=== PATIENT | female | born 1990 | race Caucasian/White ===

== ENCOUNTER 2017-03-28 09:01 | Day surgery (SDC) | payer OTHER ==
[~2017-03-28 09:01] MED LIST: Buffered Lidocaine 0.9% SYRIN* 5 ML/SYR SYRINGE INTRADERM ONE; DOXYcycline IV* 100 MG in NS 0.9% 250 ML* 250 ML IVPB ONE
[2017-03-28] MEDS ORDERED: Buffered Lidocaine 0.9% SYRIN* 5 ML/SYR SYRINGE ONE (09:07)
[2017-03-28 09:54] LABS: Hematocrit 36 % (35-47); Hemoglobin 12.2 g/dl (12.0-16.0); Mean Corpuscular HGB Conc 34 g/dl (31-36); Mean Corpuscular Hemoglobin 29 pg (27-31); Mean Corpuscular Volume 87 fL (80-97); Mean Platelet Volume 8 um3 (7.4-10.4); Red Blood Count 4.15 10^6/ul (4.0-5.4); Red Cell Distribution Width 14 % (10.5-15); White Blood Count 8.7 10^3/ul (3.5-10.8)
[2017-03-28] MEDS ORDERED: fentaNYL* 50 MCG/ML 2 ML VIAL (100 MCG VIAL) ONE (10:10)
[2017-03-28] MEDS ORDERED: Midazolam* 1 MG/ML 5 ML VIAL (5 MG) ONE (10:10)
[2017-03-28] MEDS ORDERED: Chloroprocaine 2%* 20 ML VIAL ONE (11:18)
[2017-03-28] MEDS ORDERED: Ketorolac INJ* 30 MG/ML 1 ML VIAL ONE (11:32)
[2017-03-28] MEDS ORDERED: Metoclopramide IV* 5 MG/ML 2 ML VIAL ONE (11:32)
[2017-03-28] MEDS ORDERED: Acetaminophen TAB* 325 MG PO PRN (11:57)
[2017-03-28] MEDS ORDERED: Ondansetron INJ* 2 MG/ML VIAL IV PRN (11:57)
[2017-03-28 13:47] VITALS: BP 123/73
--- NOTE | 2017-03-29 01:52 | OP ---
OPERATIVE REPORT: DATE OF OPERATION: 03/28/17 - [facility] DATE OF : 88 SURGEON: Devendra Steen MD ANESTHESIOLOGIST: Sharlene Herrera MD ANESTHESIA: Spinal. PRE-OP DIAGNOSIS: Elective termination of and desires IUD. POST-OP DIAGNOSIS: Elective termination of and desires IUD. OPERATIVE PROCEDURE: D and C and IUD insertion. ESTIMATED BLOOD LOSS: 100 cc. SPECIMENS: Include products of conception. The patient is O positive. FINDINGS: On exam under anesthesia, the uterus was 12-week size and sounded to 9 cm. DESCRIPTION OF PROCEDURE: Patient identified and procedure identified as a D and C. The patient was taken to the operating room and prepped and draped in the usual fashion in dorsal lithotomy position under spinal anesthesia. Two single-tooth tenaculums were placed on the anterior lip of the cervix. Cervix was then easily dilated up to a #33 Finnegan dilator. The #10 suction curette was inserted, suction curettage performed, copious amounts of tissue obtained as well as fluid. The sharp curette was inserted and sharp curettage was performed until the gritty sensation was felt throughout the circumference. The polyp forceps were inserted and small amount of tissue was removed this way. Suction curette was reinserted and no further tissue was obtained. A gritty sensation was felt throughout the circumference. The uterus was then sounded to 9 cm in which the IUD was placed without difficulty. The string was cut to approximately an inch and silver nitrate was applied to the tenaculum sites. Good hemostasis was achieved. All sponge and instrument counts were correct and the patient returned to the recovery room in stable condition. [id number]/[facility] #: [id number] [facility]
== END 2017-03-28 14:12 | disposition home or self-care (01) ==
LOC: OR 09:01
PROVIDERS: ATTEND Obstetrics & Gynecology
DX: Z33.2 Encounter for elective termination of pregnancy (principal); Z30.430 Encounter for insertion of intrauterine contraceptive device; Z87.891 Personal history of nicotine dependence
CPT/HCPCS: 36415; 85025; 86850; 86900; 86901; 88304; J1885; J2250; J2400; J2765; J3010; J7300

== ENCOUNTER 2018-08-04 15:03 | Emergency (ER) | payer OTHER ==
[2018-08-04 18:37] LABS: Hematocrit 38 % (35-47); Hemoglobin 12.9 g/dl (12.0-16.0); Mean Corpuscular HGB Conc 34 g/dl (31-36); Mean Corpuscular Hemoglobin 30 pg (27-31); Mean Corpuscular Volume 90 fL (80-97); Mean Platelet Volume 7.8 fL (7.4-10.4); Platelet Count 223 10^3/ul (150-450); Red Blood Count 4.26 10^6/ul (4.00-5.40); Red Cell Distribution Width 13 % (10.5-15); White Blood Count 8.7 10^3/ul (3.5-10.8)
[2018-08-04 19:01] LABS: Albumin 4.4 g/dL (3.2-5.2); Albumin/Globulin Ratio 1.8 (1-3); BUN/Creatinine Ratio 16.9 (8-20); Calcium 9.1 mg/dL (8.6-10.3); EGFR African American 90.7 (>60); Globulin 2.5 g/dL (2-4); Total Bilirubin 0.3 mg/dL (0.2-1.0); Total Protein 6.9 g/dL (6.4-8.9)
--- NOTE | 2018-08-04 19:12 | ED ---
HPI Chest Pain - HPI Summary HPI Summary: Patient is a 28 y/o female who presents to the ED c/o CP. For the past 3 days shes had intermittent CP when she is exerting herself standing at work. The pain is sharp in nature and is located in her left anterior chest. Patients CP radiates down her left arm. She also c/o mild SOB, but denies any LE edema. She took 325 mg ASA today without improvement. She is a former smoker, and uses marijuana occasionally. Patient denies any cocaine use. PMHx DVT. She denies any FHx of NC. LNMP 1 week ago, and patient is not on any hormonal control. - History of Current Complaint Chief Complaint: EDChestPainROMI Time Seen by Provider: 08/04/18 19:03 Hx Obtained From: Patient Onset/Duration: Started Days Ago - 3, Resolved Timing: Intermittent Current Severity: None Pain Intensity: 0 Pain Scale Used: 0-10 Numeric Chest Pain Location: Left Anterior Chest Pain Radiates: Yes Chest Pain Radiates To:: Arm - left Aggravating Factor(s): Exertion - standing at work Alleviating Factor(s): Nothing Associated Signs and Symptoms: Positive: Chest Pain, Shortness of Breath. Negative: Edema - Allergy/Home Medications Allergies/Adverse Reactions: Allergies Allergy/AdvReac Type Severity Reaction Status Date / Time MS No Known Drug Allergy Allergy Unknown Unknown Verified 03/27/17 09:08 [No Known Drug Allergy] Reaction Details Home Medications: Home Medications NK [No Home Medications Reported] 08/04/18 [History Confirmed 08/04/18] PMH/Surg Hx/FS Hx/Imm Hx Cardiovascular History: Reports: Hx Deep Vein Thrombosis Musculoskeletal History: Reports: Hx Tendonitis - thumb - work related Sensory History: Denies: Hx Cataracts, Hx Contacts or Glasses, Hx Hearing Aid Opthamlomology History: Denies: Hx Cataracts, Hx Contacts or Glasses Psychiatric History: Reports: Hx Depression - dx a few years ago acute depression - Cancer History Hx Chemotherapy: No - Surgical History Surgery Procedure, Year, and Place: c-sections 2014. tonsillectomy 2006. wisdom teeth removed Hx Anesthesia Reactions: No Infectious Disease History: No Infectious Disease History: Denies: Traveled Outside the [place] in Last 30 Days - Family History Known Family History: Negative: Cardiac Disease - NC - Social History Alcohol Use: Daily Hx Substance Use: Yes Substance Use Type: Reports: Marijuana Substance Use Comment - Amount & Last Used: occassionally Hx Tobacco Use: Yes Smoking Status (MU): Former Smoker Amount Used/How Often: smoked for 1-2 years 3 cigarettes a day Review of Systems Positive: Chest Pain Positive: Shortness Of Breath Negative: Edema - LE All Other Systems Reviewed And Are Negative: Yes Physical Exam - Summary Physical Exam Summary: VITAL SIGNS: Reviewed. GENERAL: Patient is a well-developed and nourished FEMALE who is lying comfortable in the stretcher. Patient is not in any acute respiratory distress. HEAD AND FACE: No signs of trauma. No ecchymosis, hematomas or skull depressions. No sinus tenderness. EYES: PERRLA, EOMI x 2, No injected conjunctiva, no nystagmus. EARS: Hearing grossly intact. Ear canals and tympanic membranes are within normal limits. MOUTH: Oropharynx within normal limits. NECK: Supple, trachea is midline, no adenopathy, no JVD, no carotid bruit, no c- spine tenderness, neck with full ROM. CHEST: Symmetric, no tenderness at palpation LUNGS: Clear to auscultation bilaterally. No wheezing or crackles. CVS: Regular rate and rhythm, S1 and S2 present, no murmurs or gallops appreciated. ABDOMEN: Soft, non-tender. No signs of distention. No rebound no guarding, and no masses palpated. Bowel sounds are normal. EXTREMITIES: FROM in all major joints, no edema, no cyanosis or clubbing. NEURO: Alert and oriented x 3. No acute neurological deficits. Speech is normal and follows commands. SKIN: Dry and warm Triage Information Reviewed: Yes Vital Signs On Initial Exam: Initial Vitals Temp Pulse Resp BP Pulse Ox 97.3 F 65 20 120/71 99 08/04/18 15:30 08/04/18 15:30 08/04/18 15:30 08/04/18 15:30 08/04/18 15:30 Vital Signs Reviewed: Yes Diagnostics - Vital Signs Vital Signs Temp Pulse Resp BP Pulse Ox 08/04/18 17:42 97.9 F 58 18 124/81 96 08/04/18 15:30 97.3 F 65 20 120/71 99 - Laboratory Lab Results: Lab Results 08/04/18 08/04/18 08/04/18 Range/Units 18:23 18:23 18:23 WBC 8.7 (3.5-10.8) 10^3/ul RBC 4.26 (4.00-5.40) 10^6/ul Hgb 12.9 (12.0-16.0) g/dl Hct 38 (35-47) % MCV 90 (80-97) fL MCH 30 (27-31) pg MCHC 34 (31-36) g/dl RDW 13 (10.5-15) % Plt Count 223 (150-450) 10^3/ul MPV 7.8 (7.4-10.4) fL D-Dimer, Quantitative < 200 (Less Than 230) ng/mL Sodium 139 (135-145) mmol/L Potassium 4.0 (3.5-5.0) mmol/L Chloride 104 (101-111) mmol/L Carbon Dioxide 28 (22-32) mmol/L Anion Gap 7 (2-11) mmol/L BUN 15 (6-24) mg/dL Creatinine 0.89 (0.51-0.95) mg/dL Est GFR ( Amer) 90.7 (>60) Est GFR (Non-Af Amer) 75.0 (>60) BUN/Creatinine Ratio 16.9 (8-20) Glucose 93 (70-100) mg/dL Calcium 9.1 (8.6-10.3) mg/dL Total Bilirubin 0.30 (0.2-1.0) mg/dL AST 16 (13-39) U/L ALT 12 (7-52) U/L Alkaline Phosphatase 45 (34-104) U/L Troponin I 0.00 (<0.04) ng/mL Total Protein 6.9 (6.4-8.9) g/dL Albumin 4.4 (3.2-5.2) g/dL Globulin 2.5 (2-4) g/dL Albumin/Globulin Ratio 1.8 (1-3) Result Diagrams: 08/04/18 18:23 08/04/18 18:23 Lab Statement: Any lab studies that have been ordered have been reviewed, and results considered in the medical decision making process. - Radiology CXR Radiology Interpretation Completed By: Radiologist Summary of Radiographic Findings: No active cardiopulmonary disease is noted. ED physician reviewed radiology report. - EKG 15:37 Cardiac Rate: NL - 65 bpm EKG Rhythm: Sinus Rhythm Summary of EKG Findings: No ST elevation Re-Evaluation - Re-Evaluation First Eval Re-Evaluation Time: 20:20 Change: Improved Comment: Pt feels better. Chest Pain Course/Dx - Course Assessment/Plan: This patient is a 28-year-old female who presents to the emergency department with a chief complaint of having chest pain. Chest x-ray impression shows no active Pulmonary disease. EKG shows a normal sinus rhythm without any ST elevations. Normal axis. Test results without any significant abnormality, troponin 0.00, d-dimer is less than 200. In the ED course the patient was given toradol for the pain. I discussed my physical exam and findings with the patient and the need to follow-up with primary care physician. Patient is hemodynamically stable alert and oriented 3. I discussed all the findings and test results with the patient. Patient was instructed to return to the emergency room immediately if any of the symptoms return or worsens. Plan of care was discussed with the patient and understands and agrees. All questions were answered at patient satisfaction. There were no further complaints or concerns. Lung exam before discharge: CTA B/L. Good air exchange. No wheezing or crackles heard. CVS: S1 and S2 present. No murmurs appreciated. Patient is alert and oriented x 3. Patient is hemodynamically stable. Patient will be discharged home with follow up PCP in the next 2-3 days. - Chest Pain Differential Diagnosis/HQI/PQRI: Acute NC, ACS, Angina, CHF, Chest Wall, GI Disease, Pulmonary Edema - Diagnoses Provider Diagnoses: Atypical chest pain Discharge - Sign-Out/Discharge Documenting (check all that apply): Patient Departure - Discharge Patient Received Moderate/Deep Sedation with Procedure: No - Discharge Plan Condition: Improved Disposition: HOME Patient Education Materials: Chest Pain (ED) Forms: *Work Release Referrals: Maynor Delaney MD [Primary Care Provider] - 3 Days Additional Instructions: RETURN TO THE ED FOR ANY WORSENING OR NEW SYMPTOMS. - Billing Disposition and Condition Condition: IMPROVED Disposition: Home - Attestation Statements Document Initiated by Scribe: Yes Documenting Scribe: Gale Tomlinson Provider For Whom Scribe is Documenting (Include Credential): Russell Leo MD Scribe Attestation: IGale, scribed for Russell Leo MD on 08/04/18 at 2145. Scribe Documentation Reviewed: Yes Provider Attestation: The documentation as recorded by the scribe, Gale Tomlinson accurately reflects the service I personally performed and the decisions made by me, Russell Leo MD Status of Scribe Document: Viewed
[2018-08-04] MEDS ORDERED: Ketorolac INJ* 30 MG/ML 1 ML VIAL IV PUSH ONE (19:22)
[2018-08-04 20:22] VITALS: BP 109/72
== END 2018-08-04 20:21 | disposition home or self-care (01) ==
LOC: ED 15:03
DX: R07.89 Other chest pain (principal); Z87.891 Personal history of nicotine dependence; Z86.718 Personal history of other venous thrombosis and embolism; F32.9 Major depressive disorder, single episode, unspecified
CPT/HCPCS: 36415; 71046; 80053; 84484; 85027; 85379; 93005; 96374; 99283